=== PATIENT | male | born 1960 | race Caucasian/White ===

== ENCOUNTER → 2020-09-21 12:10 | Outpatient (CLI) | payer BC, SELFPAY ==
--- NOTE | ~2020-09-21 | XR_ITS ---
EXAMINATION: XR chest 2V 09/21/2020 12:39 INDICATION: Tobacco use PROCEDURE: 2 view chest COMPARISON: No prior studies for comparison. FINDINGS: The lungs are clear. The cardiomediastinal silhouette is within normal limits. There are no pleural effusions. There is no pneumothorax suspected. IMPRESSION: 1: NO ACUTE CARDIOPULMONARY DISEASE. Reviewed, dictated and finalized at location B. SALES ADVISOR
== END ==
PROVIDERS: PCP Family Medicine; Visit Provider Family Medicine
DX: Z12.2 Encounter for screening for malignant neoplasm of respiratory organs (principal); Z72.0 Tobacco use
CPT/HCPCS: 71046

== ENCOUNTER 2022-10-10 00:55 | Day surgery (SDC) | payer BC, SELFPAY ==
[2022-09-23 13:51] VITALS: BMI 22.4
[2022-10-10 06:36] VITALS: BP 130/72; PULSE 84; RESP 17; TEMP 36.2; O2SAT 96; BMI 21.9
[2022-10-10] MEDS: LACTATED RINGERS 1,000 ML 150 ML IV CONT (06:43)
--- NOTE | 2022-10-10 07:27 | WPDANESEPPF ---
Anes - Initial Pre Proc Eval Procedure: Operation Date: 10/10/22 08:00 Proposed Procedures p Screening Colonoscopy - Pablo Bryan MD Date/Time: 10/10/22 07:27 Surgeon: Pablo Bryan MD Pre Op Diagnosis: neoplasm screening Patient Data Age: 61 Gender: M Height: 1.83 m Weight: 73.3 kg Last Vital Signs Temp 97.2 F L 10/10/22 06:36 Pulse 84 10/10/22 06:36 Resp 17 10/10/22 06:36 BP 130/72 10/10/22 06:36 Pulse Ox 96 10/10/22 06:36 O2 Del Method Room Air 10/10/22 06:36 Allergies Allergy/AdvReac Type Severity Reaction Status Date / Time No Known Allergies Allergy Verified 10/10/22 06:35 Home Medications Medication Instructions Recorded Confirmed Type cyanocobalamin (vitamin B-12) 1,000 mcg PO DAILY 05/27/20 10/10/22 History 1,000 mcg tablet lisinopril 10 mg tablet 10 mg PO DAILY #90 tabs 07/26/22 10/10/22 Rx Patient hx anesthesia problems: none Family hx anesthesia problems: none Results Review: All pre-operative results and documents have been reviewed as part of the pre-operative evaluation. [facility] Past Medical History Medical History (Updated 08/08/22 @ 15:37 by Srinivas Meeks MD) BMI 20.0-20.9, adult BMI 22.0-22.9, adult Colon cancer screening Erectile dysfunction Total testosterone 499 with free testosterone 75.5 on 08/04/2022. Family history of premature coronary artery disease Mixed hyperlipidemia Total cholesterol 205, triglycerides 181, HDL 35, LDL 138 on 08/04/2022. Potential exposure to STD screening negative on 08/04/2022. Primary hypertension Prostate cancer screening PSA normal at 2.8 on 02/27/2020.PSA normal at 3.2 on 08/04/2022. Subcutaneous mass Thrombocytosis (08/04/22) platelets slightly elevated at 438 on 08/04/2022. Tobacco abuse Vitamin B12 deficiency anemia Level low at 367 with goal greater than 400 on 02/27/2020. Level normal at 604 with hemoglobin 15.7 and folic acid 10.5 with iron 105 with 38% saturation and ferritin 180 on 08/04/2022. Family History Family History (Updated 02/27/20 @ 08:01 by Fox Page ROBOTICS SPECIALIST) Mother No problems noted. Father Acute myocardial infarction Grandparent Heart disease Grandparent Heart disease Social History Social History (Updated 08/03/22 @ 15:37 by Janine Damon MA) Smoking packs per day: 0.75 Smoking cigarettes per day: 15.0 Years smoked: 45 Smoking pack-years: 33.75 Smoking status: Current every day smoker Tobacco type: cigarettes Alcohol intake: never Substance use: never Substance use type: does not use Lack of Transportation: No Lack of Food: Never True Current Housing: I Have Housing Concerned About Future Housing: No Difficulty Paying Gas/Electric Bills: No Difficulty Paying for Meds: No Currently Unemployed: No Education: High School Diploma/GED Difficulty w/ Childcare or Family Care: No Living arrangements: with family Spiritual care concerns: No Anes - Eval Final PreProcedure Day of Procedure 10/10/22 07:27 Patient weight: normal Heart: regular rate and rhythm Lungs: clear to auscultation Airway: Mallampati scale class II Neurological: alert and oriented Last oral intake: >/= 8 hours ASA classification: II Emergent: no Anesthetic plan: proceed Anesthesia type and monitoring: general GIVS and standard monitoring Results Review: All pre-operative results and documents have been reviewed as part of the pre-operative evaluation. Informed Consent: The patient's anesthetic plan and its attendant risks and benefits were discussed with the patient/family/POA. Questions were solicited and answers provided to the satisfaction of the patient/family/POA.
--- NOTE | 2022-10-10 07:32 | PM.HPGS ---
History of Present Illness History of Present Illness Consent: Risks, benefits, and alternatives have been discussed and questions answered. Patient agrees to proceed with procedure. Chief complaint: neoplasm screening Narrative: Frederick Rolon is a 61 year old male here for first screening colonoscopy Review of Systems Constitutional: Constitutional: Denies headache(s) and Denies weakness Eyes: Eyes: Denies blurry vision ENT: Reports Normal hearing present, Denies headache(s) and Denies neck pain Cardiovascular: Cardiovascular: Denies chest pain and Denies dyspnea Respiratory: Respiratory: Denies dyspnea Gastrointestinal: Gastrointestinal: Reports no additional gastrointestinal complaints Genitourinary: Genitourinary: Denies dysuria Musculoskeletal: Musculoskeletal: Denies neck pain Integumentary/Breasts: Skin/Breast: Denies dry skin Neurologic: Reports Normal hearing present, Denies headache(s) and Denies weakness Psychiatric: Psychiatric: Denies anxiety Endocrine: Endocrine: Denies change in body appearance Hematologic/Lymphatic: Hematologic/Lymphatic: Denies easy bleeding Allergic/Immunologic: Allergic/Immunologic: Denies urticaria [facility] Past Medical History Medical History (Updated 08/08/22 @ 15:37 by Srinivas Meeks MD) BMI 20.0-20.9, adult BMI 22.0-22.9, adult Colon cancer screening Erectile dysfunction Total testosterone 499 with free testosterone 75.5 on 08/04/2022. Family history of premature coronary artery disease Mixed hyperlipidemia Total cholesterol 205, triglycerides 181, HDL 35, LDL 138 on 08/04/2022. Potential exposure to STD screening negative on 08/04/2022. Primary hypertension Prostate cancer screening PSA normal at 2.8 on 02/27/2020.PSA normal at 3.2 on 08/04/2022. Subcutaneous mass Thrombocytosis (08/04/22) platelets slightly elevated at 438 on 08/04/2022. Tobacco abuse Vitamin B12 deficiency anemia Level low at 367 with goal greater than 400 on 02/27/2020. Level normal at 604 with hemoglobin 15.7 and folic acid 10.5 with iron 105 with 38% saturation and ferritin 180 on 08/04/2022. Family History Family History (Updated 02/27/20 @ 08:01 by Fox Page CMA) Mother No problems noted. Father Acute myocardial infarction Grandparent Heart disease Grandparent Heart disease Social History Social History (Updated 08/03/22 @ 15:37 by Janine Damon MA) Smoking packs per day: 0.75 Smoking cigarettes per day: 15.0 Years smoked: 45 Smoking pack-years: 33.75 Smoking status: Current every day smoker Tobacco type: cigarettes Alcohol intake: never Substance use: never Substance use type: does not use Lack of Transportation: No Lack of Food: Never True Current Housing: I Have Housing Concerned About Future Housing: No Difficulty Paying Gas/Electric Bills: No Difficulty Paying for Meds: No Currently Unemployed: No Education: High School Diploma/GED Difficulty w/ Childcare or Family Care: No Living arrangements: with family Spiritual care concerns: No Meds Home Medications and Allergies Home Medications Medication Instructions Recorded Confirmed Type cyanocobalamin (vitamin B-12) 1,000 mcg PO DAILY 05/27/20 10/10/22 History 1,000 mcg tablet lisinopril 10 mg tablet 10 mg PO DAILY #90 tabs 07/26/22 10/10/22 Rx Allergies Allergy/AdvReac Type Severity Reaction Status Date / Time No Known Allergies Allergy Verified 10/10/22 06:35 Vital Signs Vital Signs - 24 hr 10/10/22 06:36 Temperature 97.2 F L Pulse Rate 84 Respiratory Rate 17 Blood Pressure 130/72 Pulse Oximetry 96 Oxygen Delivery Room Air Exam Const: General: comfortable and no acute distress HENMT: Face/Nose/Sinus: Normal nares present Eyes: General: appearance normal, both eyes and all related structures Neck: Neck: no JVD Resp: Auscultation: clear to auscultation bilat
[2022-10-10 07:53] VITALS: BP 100/54; PULSE 68; RESP 18; O2SAT 96
[2022-10-10 08:03] VITALS: BP 113/63; PULSE 66; RESP 20; O2SAT 100
[2022-10-10 08:13] VITALS: BP 130/73; PULSE 68; RESP 18; O2SAT 100
== END 2022-10-10 08:18 | disposition home or self-care (01) ==
PROVIDERS: PCP Family Medicine; Visit Provider Internal Medicine Gastroenterology
PROC: 0DJD8ZZ Inspection of Lower Intestinal Tract, Via Natural or Artificial Opening Endoscopic (ICD-10-PCS; CPT 45378; principal; 2022-10-10 08:00)
DX: Z12.11 Encounter for screening for malignant neoplasm of colon (principal); D12.4 Benign neoplasm of descending colon; K57.30 Diverticulosis of large intestine without perforation or abscess without bleeding; K64.8 Other hemorrhoids; I10 Essential (primary) hypertension; D51.3 Other dietary vitamin B12 deficiency anemia; F17.210 Nicotine dependence, cigarettes, uncomplicated
CPT/HCPCS: 45385; 88305; J2704; J7120